=== PATIENT | female | born 1960 | race African-American/Black ===

== ENCOUNTER → 2023-12-19 | Day surgery (SDC) | payer OTHER ==
[~2023-12-19] MED LIST: HYOSCYAMINE SULFATE 0.5 MG/ML INJ ONE; LIDOCAINE HCL 2% LOCAL INJ 5 ML SDV VIAL INJ ONE; PROPOFOL IV EMULSION 10 MG/ML 20 ML VIAL ONE
[2023-12-19] MEDS: LACTATED RINGER'S 1,000 ML ONE (07:30)
[2023-12-19 09:59] VITALS: BP 133/96; PULSE 91; RESP 16; TEMP 97; O2SAT 99
== END | disposition home or self-care (01) ==
LOC: OR 06:30
PROVIDERS: ATTEND Internal Medicine Gastroenterology
DX: Z12.11 Encounter for screening for malignant neoplasm of colon (principal); D12.4 Benign neoplasm of descending colon; K63.5 Polyp of colon; K57.30 Diverticulosis of large intestine without perforation or abscess without bleeding; K64.8 Other hemorrhoids; I10 Essential (primary) hypertension; R94.31 Abnormal electrocardiogram [ECG] [EKG]; Z01.810 Encounter for preprocedural cardiovascular examination
CPT/HCPCS: 45380; 45385; 93005; J1980; J2003; J2704; J7121; 45384